=== PATIENT | female | born 1930 | race Caucasian/White ===

== ENCOUNTER 2017-07-06 15:42 | Inpatient (IN) | payer OTHER, BC ==
[2017-07-06 16:21] VITALS: TEMP 97.4; BMI 25.4
[2017-07-06 16:39] LABS: BASOPHIL 0.4 % (0-2.0); EOSINOPHIL 0.9 % (0-4.5); MCH 30.1 pg (25.7-33.7); MCHC 33.4 g/dl (32.0-36.0); MEAN CELL VOLUME 89.9 fl (80-96); NEUTROPHILS 54.8 % (42.8-82.8); PLATELET COUNT 217 K/MM3 (134-434); WHITE BLOOD COUNT 13.5 K/mm3 (4.0-10.0)
[2017-07-06 16:51] LABS: INR 0.98 (0.82-1.09); PROTHROMBIN TIME (PATIENT) 11.1 SEC (9.98-11.88)
--- NOTE | 2017-07-06 17:17 | PDOC ---
History of Present Illness - General History Source: Patient Exam Limitations: No Limitations - History of Present Illness Initial Comments: 07/06/17 18:02 The patient is a 87 year old female, with a significant past medical history of HTN, HLD, pacemaker who presents to the emergency department with palpitations and lightheadedness today. Yesterday, patient reports walking up a hill and suddenly experienced these symptoms. Patient returned home and symptoms resolved. Today, patient notes multiple episodes of vomiting and nausea accompanied with her lightheadedness. Patient denies any headache,chest pain, or dizziness. He denies fever, chills, abdominal pain, nausea, vomit, diarrhea or constipation. He denies dysuria, frequency, urgency or hematuria. Patient denies sick contacts or recent travel. Allergies: NKA Past surgical history: PPM Social history: None PCP: Dr. Son <Latosha Urena - Last Filed: 07/06/17 18:02> <Michael Armenta - Last Filed: 07/06/17 19:10> - General Chief Complaint: Lightheaded Stated Complaint: PALPITATIONS, VOMITING Time Seen by Provider: 07/06/17 17:15 Past History <Latosha Urena - Last Filed: 07/06/17 18:02> - Past Medical History Cardiac Disorders: Yes COPD: No HTN: Yes Hypercholesterolemia: Yes - Surgical History Cardiac Surgery: Yes (ppm) - Suicide/Smoking/Psychosocial Hx Smoking History: Never smoked Have you smoked in the past 12 months: No Hx Alcohol Use: No Drug/Substance Use Hx: No Substance Use Type: None <Michael Armenta - Last Filed: 07/06/17 19:10> - Past Medical History Allergies/Adverse Reactions: Allergies Allergy/AdvReac Type Severity Reaction Status Date / Time No Known Allergies Allergy Verified 07/06/17 16:18 Home Medications: Ambulatory Orders Amlodipine Bes/Olmesartan Med [Serg 10-40 mg Tablet] 0.5 each PO DAILY 07/06/17 Aspirin [ASA -] 81 mg PO DAILY 07/06/17 B1/B2/Niacin/B12/Protease [B-Complex with B-12 Tablet] 1 each PO DAILY 07/06/17 Cholecalciferol (Vitamin D3) [Vitamin D3] 2,000 unit PO DAILY 07/06/17 Levothyroxine [Synthroid -] 125 mcg PO HS 07/06/17 Metoprolol Succinate [Toprol Xl -] 25 mg PO HS 07/06/17 Simvastatin [Zocor -] 10 mg PO HS 07/06/17 Ubidecarenone [Coenzyme Q-10] 100 mg PO DAILY 07/06/17 Review of Systems - Review of Systems Able to Perform ROS?: Yes Comments:: 07/06/17 18:02 A complete review of 10 out of 10 review of systems is taken and is negative apart from what is previously mentioned below and in the HPI. <Latosha Urena - Last Filed: 07/06/17 18:02> *Physical Exam - Vital Signs Last Vital Signs Temp Pulse Resp BP Pulse Ox 97.4 F L 65 18 124/56 99 07/06/17 16:19 07/06/17 16:19 07/06/17 16:19 07/06/17 16:19 07/06/17 16:19 - Physical Exam Comments: 07/06/17 18:02 Vitals: Triage Vital signs reviewed General Appearance: no acute distress, well nourished well developed, Head: Atraumatic, normocephalic Neck: Supple;No Nuchal rigidity Chest Wall: Nontender Cardiac: Regular rate and rhythm, no murmurs, no rubs, no gallops, Lungs: Clear to auscultation bilateral, good air movement bilaterally, Abdomen: Soft, nondistended, normal bowel sounds, nontender to palpation Extremities: Full range of motion to all extremities, no cyanosis, clubbing, or edema Skin: Warm and dry, no rashes or lesions, no petechiae. <Latosha Urena - Last Filed: 07/06/17 18:02> - Vital Signs Last Vital Signs Temp Pulse Resp BP Pulse Ox 97.4 F L 65 18 124/56 99 07/06/17 16:19 07/06/17 16:19 07/06/17 16:19 07/06/17 16:19 07/06/17 16:19 <Michael Armenta - Last Filed: 07/06/17 19:10> Heart Score/ECG Review #1 07/06/17 17:37 ECG Reviewed by me Paced Rhythm. <Latosha Urena - Last Filed: 07/06/17 18:02> ED Treatment Course - LABORATORY CBC & Chemistry Diagram: 07/06/17 16:15 07/06/17 16:15 - ADDITIONAL ORDERS Additional order review: 07/06/17 16:15 RBC 4.55 MCV 89.9 MCHC 33.4 RDW 15.0 MPV 8.0 Neutrophils % 54.8 Lymphocytes % 34.6 D Monocytes % 9.3 Eosinophils % 0.9 Basophils % 0.4 <Latosha Urena - Last Filed: 07/06/17 18:02> - LABORATORY CBC & Chemistry Diagram: 07/06/17 16:15 07/06/17 16:15 - ADDITIONAL ORDERS Additional order review: 07/06/17 16:15 RBC 4.55 MCV 89.9 MCHC 33.4 RDW 15.0 MPV 8.0 Neutrophils % 54.8 Lymphocytes % 34.6 D Monocytes % 9.3 Eosinophils % 0.9 Basophils % 0.4 - RADIOLOGY Radiology Studies Ordered: Category Date Time Status CHEST X-RAY PORTABLE* [RAD] Stat Radiology 07/06/17 16:23 Ordered <Michael Armenta - Last Filed: 07/06/17 19:10> Medical Decision Making - Medical Decision Making 07/06/17 19:10 Patient with 2 day history of exertional near syncope palpitations nausea vomiting case discussed with patient's primary care doctor doctor and be noted to be prerenal with elevated creatinine on laboratory analysis. We'll observe overnight on telemetry hydrate labs and reassess <Michael Armenta - Last Filed: 07/06/17 19:10> *DC/Admit/Observation/Transfer - Attestations Scribe Attestion: 07/06/17 18:03 Documentation prepared by Latosha Urena, acting as medical science liaison for Michael Armenta MD <Latosha Urena - Last Filed: 07/06/17 18:02> - Discharge Dispostion Admit: Yes <Michael Armenta - Last Filed: 07/06/17 19:10> Diagnosis at time of Disposition: Pre-syncope, Renal insufficiency - Referrals Referrals: Travis Son MD [Primary Care Provider] - - Patient Instructions - Post Discharge Activity
[2017-07-06 18:10] LABS: ALBUMIN 3.7 g/dl (3.4-5.0); ANION GAP 13 (8-16); CALCIUM 8.5 mg/dL (8.5-10.1); CO2 18 mmol/L (21-32); GLUCOSE,RANDOM 126 mg/dL (74-106)
[2017-07-06] MEDS ORDERED: SODIUM CHLORIDE 0.9% 1000 ML INFUS.BAG IV ONE (18:10)
[2017-07-06] MEDS ORDERED: ONDANSETRON 4 MG/2 ML VIAL ONE (18:16)
[2017-07-06 18:17] LABS: ALK PHOS 87 U/L (45-117); BILIRUBIN,TOTAL 0.8 mg/dL (0.2-1.0); CPK 87 IU/L (26-192); CREATININE 1.4 mg/dL (0.55-1.02); SGPT/ALT 31 U/L (12-78); TOT PROT 7.2 g/dl (6.4-8.2); TROPONIN I < 0.02 ng/ml (0.00-0.05)
[2017-07-06 18:34] LABS: SGOT/AST 34 U/L (15-37)
[2017-07-06 21:10] VITALS: BP 136/58; PULSE 101
[2017-07-06] MEDS ORDERED: D5-1/2NS+20 MEQ KCL - 20 MEQ/1,000 ML INFUS.BAG IV SCH (21:30)
[2017-07-06] MEDS ORDERED: METOPROLOL SUCCINATE 25 MG TAB.SR.24H (FP) PO SCH (22:00)
[2017-07-06] MEDS ORDERED: LEVOTHYROXINE NA 125 MCG TABLET (FP) PO SCH (22:00)
[2017-07-06] MEDS ORDERED: HEPARIN NA (PORCINE) 5,000 UNITS/ML 1ML VIAL SQ SCH (22:00)
[2017-07-06] MEDS ORDERED: ATORVASTATIN CA 10 MG TABLET (FP) PO SCH (22:00)
[2017-07-07] MEDS ORDERED: HEPARIN NA (PORCINE) 5,000 UNITS/ML 1ML VIAL ONE (00:09)
[2017-07-07 03:02] LABS: URINE APPEARANCE CLEAR; URINE BILIRUBIN NEGATIVE (NEGATIVE); URINE BLOOD 1+ (NEGATIVE); URINE COLOR STRAW; URINE GLUCOSE (UA) NEGATIVE (NEGATIVE); URINE KETONE NEGATIVE (NEGATIVE); URINE NITRITE NEGATIVE (NEGATIVE); URINE PROTEIN NEGATIVE (NEGATIVE); URINE UROBILINOGEN NEGATIVE mg/dL (0.2-1.0)
[2017-07-07 03:07] LABS: URINE MUCUS RARE; URINE RBC 1; URINE WBC 3
[2017-07-07] MEDS ORDERED: amLODIPine BESYLATE 5 MG TABLET (FP) PO SCH (10:00)
[2017-07-07] MEDS ORDERED: VALSARTAN 160 MG TABLET (UD) PO SCH (10:00)
[2017-07-07] MEDS ORDERED: PATIENT'S OWN MEDICATION (NON-FORMULARY) (Amlodipine Bes/Olmesartan Med [Azor 10-40 Mg Tab PO SCH (10:00)
[2017-07-07] MEDS ORDERED: ASPIRIN 81 MG CHEWABLE TABLETS PO SCH (10:00)
[2017-07-07 10:38] LABS: URINE LEUK ESTERASE 1+ (NEGATIVE)
--- NOTE | 2017-07-07 13:18 | EKG ---
Test Reason : Blood Pressure : / mmHG Vent. Rate : 077 BPM Atrial Rate : 077 BPM P-R Int : 166 ms QRS Dur : 170 ms QT Int : 460 ms P-R-T Axes : 024 -82 082 degrees QTc Int : 520 ms Atrial-sensed ventricular-paced rhythm ABNORMAL ECG WHEN COMPARED WITH ECG OF 23-JUN-2006 07:51, VENT. RATE HAS INCREASED BY 3 BPM Confirmed by NESTOR TORRE, CHARITY ([id number]) on 07/07/2017 1:17:50 PM Referred By: Confirmed By:CHARITY BAEZ MD
== END 2017-07-07 04:16 | disposition left against medical advice (07) | DRG 312 ==
LOC: JER 15:42 → JERBED 19:53 → OBSVTOIN 21:20 → JERBED 07-07 04:20
PROVIDERS: ADMIT Family Medicine; ATTEND Family Medicine
DX: R55 Syncope and collapse (principal); I10 Essential (primary) hypertension; E78.5 Hyperlipidemia, unspecified; Z95.0 Presence of cardiac pacemaker; N28.9 Disorder of kidney and ureter, unspecified
CPT/HCPCS: 36415; 71010-TC; 80053; 81003; 81015; 82550; 83605; 84484; 85025; 85610; 93005; 93010; 99284-25; G0378; J1644